=== PATIENT | female | born 1950 | race Caucasian/White ===

== ENCOUNTER → 2016-11-19 | Outpatient (CLI) | payer OTHER ==
--- NOTE | 2016-11-19 16:41 | REP ---
Pelvic ultrasound: History: Pelvic pain. Findings: Transabdominal and transvaginal scanning are performed. Uterine dimensions are normal measured at 4.8 x 1.5 x 3.1 cm. Endometrial echo 0.4 cm thick. Myometrium is somewhat heterogeneous but no identifiable uterine mass is seen. No free fluid is seen. The visualized bladder melvin are smooth. Neither ovary could be identified transabdominally or transvaginal. There is no evidence of free fluid, adnexal cyst or mass. Impression: Normal pelvic sonography. Neither ovary could be directly visualized with either transabdominal or transvaginal technique.
== END ==
LOC: M WHC 12:59
PROVIDERS: ATTEND Nurse Practitioner Family
DX: R10.2 Pelvic and perineal pain (principal)

== ENCOUNTER 2017-01-02 10:10 | Emergency (ER) | payer OTHER ==
[~2017-01-02] VITALS: Ht 144.8 cm; Wt 63.8 kg
[2017-01-02] MEDS ORDERED: METF500T13 PO (10:28)
[2017-01-02] MEDS ORDERED: FLUO20CA19 PO (10:28)
[2017-01-02] MEDS ORDERED: LEVO100T5 PO (10:28)
[2017-01-02] MEDS ORDERED: FARX1TAB3 PO (10:28)
[2017-01-02] MEDS ORDERED: ATOR1TAB21 PO (10:28)
[2017-01-02] MEDS ORDERED: PANT40TA2 PO (10:28)
[2017-01-02] MEDS ORDERED: LISI10TA4 PO (10:28)
[2017-01-02] MEDS ORDERED: NAPR500T3 PO (10:28)
[2017-01-02] MEDS ORDERED: PRED20TA PO (10:28)
[2017-01-02] MEDS ORDERED: VALI5TAB PO (12:08)
[2017-01-02 12:16] VITALS: BP 177/96
[2017-01-03] MEDS ORDERED: PERC5TAB12 PO (04:20)
== END 2017-01-02 12:29 | disposition home or self-care (01) ==
LOC: M ED 12:27
DX: M62.838 Other muscle spasm (principal); E11.9 Type 2 diabetes mellitus without complications; E03.9 Hypothyroidism, unspecified; F41.9 Anxiety disorder, unspecified; F32.9 Major depressive disorder, single episode, unspecified; Z79.84 Long term (current) use of oral hypoglycemic drugs; Z79.899 Other long term (current) drug therapy

== ENCOUNTER 2017-01-03 00:18 | Emergency (ER) | payer OTHER ==
[~2017-01-03] VITALS: Ht 144.8 cm; Wt 68.0 kg
[~2017-01-03 00:18] MED LIST: ATOR1TAB21 PO; FARX1TAB3 PO; FLUO20CA19 PO; LEVO100T5 PO; LISI10TA4 PO; METF500T13 PO; NAPR500T3 PO; PANT40TA2 PO; PRED20TA PO; VALI5TAB PO
[2017-01-03] MEDS ORDERED: PERC5TAB12 PO (04:20)
[2017-01-03] MEDS ORDERED: OXYCODONE/APAP 5MG/325MG(BULK FOR ED) 1 TABLET PO ONE (04:30)
[2017-01-03] MEDS ORDERED: MORPHINE 10 MG/ML 1ML VIAL IM ONE (04:30)
[2017-01-03 04:55] VITALS: BP 167/75
== END 2017-01-03 05:09 | disposition home or self-care (01) ==
LOC: M ED 01:40
DX: M25.562 Pain in left knee (principal); Z79.84 Long term (current) use of oral hypoglycemic drugs; Z79.899 Other long term (current) drug therapy; Z79.52 Long term (current) use of systemic steroids

== ENCOUNTER → 2017-01-07 | Outpatient (RCR) | payer OTHER ==
[~2017-01-07] MED LIST changes: +GABA-283 PO; +NEUR100C PO; +PERC5TAB12 PO
== END | disposition home or self-care (01) ==
LOC: M PT 09:57
PROVIDERS: ATTEND Orthopaedic Surgery
DX: Z51.89 Encounter for other specified aftercare (principal); M25.562 Pain in left knee; M51.37 Other intervertebral disc degeneration, lumbosacral region
CPT/HCPCS: 97162; G8978; G8979

== ENCOUNTER → 2017-01-14 | Outpatient (CLI) | payer OTHER ==
--- NOTE | 2017-01-14 11:05 | REP ---
MRI left knee without contrast: History: Left knee pain. No comparison radiographs. Technique: Sagittal axial and coronal imaging planes were utilized. T1 and T2-weighted scans were obtained in the usual fashion with and without fat saturation. MRI findings: There is a zone of marrow edema extending centrally into the superior pole the patella. Cortical and medullary bone signal intensity are otherwise normal. There is a large area articular cartilage loss in the central portion of the patella superiorly consistent with severe chondromalacia of the patella. This overlies the area of marrow edema. There is also moderate chondromalacia involving the medial femoral condyle. No other articular cartilaginous lesion is seen. There is no visible medial or lateral meniscal tear. There is however some fraying of the inner free margin of the medial meniscus sagittal image. There is no evidence of medial or lateral collateral ligament disruption. The patellar and the quadriceps tendons are intact. Anterior and posterior cruciate ligaments are unremarkable. No significant joint effusion is seen. No Argueta's cyst is seen. Impression: 1. 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 2. Fraying of the inner free margin posterior horn medial meniscus. Signed by Vivek Hassan MD 01/14/2017 11:35 A
--- NOTE | 2017-01-14 13:55 | REP ---
MR LUMBAR SPINE WITHOUT CONTRAST: HISTORY: Back and left leg pain. Decreased signal intensity on T2-weighted images is present in the L2-3 through L5-S1 intervertebral discs. The discs are decreased in height. These findings re consistent with disc degeneration. A small disc protrusion, central and eccentric to the right are present at the T11-12 level. There is minimal effacement of the thecal sac without spinal cord compression. The T11 neural foramina are patent on saggital images. There is no disc bulge or herniation at the L1-2 level. The L1 nerves exit the neural foramina without compression. A diffuse disc bulge is present at the L2-3 level. There is minimal compression of the thecal sac. There is hypertrophy of the posterior articulating facets. The L2 nerves exit the neural foramina without compression. A diffuse disc bulge and mild size left paracentral and intraforaminal disc extrusion are present at the L3-4 level. There is superior migration of disc material. There is minimal compression of the thecal sac. There is compression of the left L3 nerve in the left L3 lateral recess and left L3 neural foramen . The right L3 nerve exits the neural foramen without compression. A diffuse disc bulge is present at the L4-5 level. There is minimal compression of the thecal sac. There is hypertrophy of the posterior articulating facets. There is compression of the right L4 nerve in the neural foramen. The left L4 nerve exits the neural foramen without compression. A diffuse disc bulge is present at the L5-S1 level. There is minimal compression of the thecal sac. There is hypertrophy of the posterior articulating facets. A small right intraforaminal and lateral disc protrusion is present. There is posterolateral displacement of the right L5 nerve in the distal neural foramen. The left L5 nerve exits the neural foramen without compression. The conus medullaris is normal in appearance terminating at the level of the L1-2 intervertebral disc. A hemangioma is present in the L4 vertebral body. Increased signal intensity on T2-weighted images is present in the endplates of the L4 through S1 vertebral bodies. This represents degenerative change. IMPRESSION: 1. Diffuse disc bulge at the L2-3 level with minimal thecal sac compression. 2. Diffuse disc bulge and mild size left paracentral and intraforaminal disc extrusion at the L3-4 level with minimal thecal sac compression. There is compression of the left L3 nerve in the L3 lateral recess and left L3 neural foramen. 3. Diffuse disc bulge at the L4-5 level with minimal thecal sac compression. There is compression of the right L4 nerve in the neural foramen. 4. Diffuse disc bulge at the L5-S1 level with minimal thecal sac compression. A small right intraforaminal and lateral disc protrusion is present. There is posterolateral displacement of the right L5 nerve in the distal neural foramen. Signed by Primo Stoner MD 01/14/2017 01:58 P
== END ==
LOC: M PLARAD 07:41
PROVIDERS: ATTEND Orthopaedic Surgery
DX: M51.26 Other intervertebral disc displacement, lumbar region (principal); M25.562 Pain in left knee; M51.27 Other intervertebral disc displacement, lumbosacral region

== ENCOUNTER 2017-01-16 18:39 | Emergency (ER) | payer OTHER ==
[~2017-01-16] VITALS: Ht 147.3 cm; Wt 63.2 kg
[~2017-01-16 18:39] MED LIST changes: -GABA-283 PO; -NEUR100C PO
[2017-01-16 18:40] VITALS: BP 144/93
[2017-01-16] MEDS ORDERED: PERCOCET 5MG/325MG TAB PO ONE (22:15)
[2017-01-16] MEDS ORDERED: GABAPENTIN 100 MG CAP PO ONE (22:15)
[2017-01-16] MEDS ORDERED: GABA-283 PO (22:18)
[2017-01-16] MEDS ORDERED: NEUR100C PO (22:19)
== END 2017-01-16 22:43 | disposition home or self-care (01) ==
LOC: M ED 18:39
DX: M51.9 Unspecified thoracic, thoracolumbar and lumbosacral intervertebral disc disorder (principal); M25.562 Pain in left knee; K92.9 Disease of digestive system, unspecified; R42 Dizziness and giddiness; E11.9 Type 2 diabetes mellitus without complications; E03.9 Hypothyroidism, unspecified; F41.9 Anxiety disorder, unspecified; F32.9 Major depressive disorder, single episode, unspecified; Z79.84 Long term (current) use of oral hypoglycemic drugs; Z79.899 Other long term (current) drug therapy

== ENCOUNTER → 2017-10-31 | Outpatient (REF) | payer OTHER | LOC: M LAB REF 11:38 | DX: R19.7 Diarrhea, unspecified (principal) | CPT/HCPCS: 87507 ==

== ENCOUNTER → 2018-03-30 | Outpatient (REF) | payer OTHER ==
[2018-04-06 14:17] LABS: HPV HYBRID CAPTURE II Positive (Negative)
== END ==
LOC: M SFHCWAGY 14:04
DX: Z01.411 Encounter for gynecological examination (general) (routine) with abnormal findings (principal); Z12.4 Encounter for screening for malignant neoplasm of cervix (principal); R87.610 Atypical squamous cells of undetermined significance on cytologic smear of cervix (ASC-US); Z12.12 Encounter for screening for malignant neoplasm of rectum; N95.2 Postmenopausal atrophic vaginitis
CPT/HCPCS: G0123

== ENCOUNTER → 2018-04-17 | Outpatient (REF) | payer OTHER | LOC: M SFHCWAGY 13:29 | DX: R87.810 Cervical high risk human papillomavirus (HPV) DNA test positive (principal); R85.610 Atypical squamous cells of undetermined significance on cytologic smear of anus (ASC-US) | CPT/HCPCS: 88304 ==

== ENCOUNTER → 2018-04-20 | Outpatient (REF) | payer OTHER ==
[2018-04-21 12:03] LABS: HEPATITIS C VIRUS ABY INDEX < 0.0 INDEX (<0.8)
== END ==
LOC: M LAB REF 17:36
DX: Z11.59 Encounter for screening for other viral diseases (principal)
CPT/HCPCS: 86803

== ENCOUNTER → 2018-05-05 | Outpatient (CLI) | payer OTHER | LOC: M WHC 12:56 | DX: Z12.31 Encounter for screening mammogram for malignant neoplasm of breast (principal); Z78.0 Asymptomatic menopausal state; Z79.890 Hormone replacement therapy | CPT/HCPCS: 77067 ==

== ENCOUNTER → 2020-01-14 | Outpatient (REF) | payer MEDICARE ==
[~2020-01-14] MED LIST changes: -FLUO20CA19 PO; +FLUO20CA22 PO; +GABA-845 PO; +NAPR-885 PO; -NAPR500T3 PO; +NEUR100C PO; -PANT40TA2 PO; +PANT40TA3 PO
== END ==
LOC: M SFHCWAGY 17:03
PROVIDERS: ATTEND Nurse Practitioner Family
DX: Z12.4 Encounter for screening for malignant neoplasm of cervix (principal); N95.2 Postmenopausal atrophic vaginitis
CPT/HCPCS: 87624; G0123

== ENCOUNTER → 2021-02-26 | Outpatient (REF) | payer MEDICARE ==
[~2021-02-26] MED LIST changes: +GABA-283 PO; -GABA-845 PO; +LISI10TA22 PO; -LISI10TA4 PO; +PANT40TA29 PO; -PANT40TA3 PO
== END ==
LOC: M LAB REF 16:33
PROVIDERS: ATTEND Internal Medicine
DX: K22.70 Barrett's esophagus without dysplasia (principal); K21.9 Gastro-esophageal reflux disease without esophagitis; Z86.010 Personal history of colon polyps

== ENCOUNTER → 2021-04-17 | Outpatient (CLI) | payer MEDICARE ==
--- NOTE | 2021-04-17 13:32 | REPMRS ---
Patient History The patient states she has not had a clinical breast exam in over a year. Patient is postmenopausal. No known family history of cancer. Taking estrogen for 3 years. No breast complaints today Patient signed the MRS sheet 1st covid vaccine 09/30/20-right arm-Moderna 2nd covid vaccine 10/28/20-right arm Priors on PACS Patient Identification Verified Digital Woman Screen Mammo: April 17, 2021 - Exam #: [id number] Bilateral CC and MLO view(s) were taken. Technologist: Aneta Baca, Technologist Prior study comparison: April 25, 2020, bilateral digital woman screen mammo performed at [facility]. April 11, 2019, bilateral digital mammo screening bilat, performed at [facility]. May 05, 2018, bilateral digital woman screen mammo performed at [facility]. FINDINGS: The breast tissue is almost entirely fat. The Volpara volumetric breast density category is: A. There has been no change in the appearance of the mammogram from the prior studies. There is no interval development of dominant mass, architectural distortion, or grouped microcalcification typical of malignancy. 3-D tomosynthesis shows no additional findings. Assessment: BI-RADS/ACR category 1 mammogram. Negative Mammogram. Recommendation Routine screening mammogram of both breasts in 1 year (for women over age 40). This patient's [facility] [address] Lifetime Breast Cancer RIsk is estimated at 3.9 %. This mammogram was interpreted with the aid of an FDA-approved computer-aided dectection system. Electronically Signed By: Daquan Hassan MD 04/17/21 [id number]
== END ==
LOC: M WHC 11:47
PROVIDERS: ATTEND Internal Medicine
DX: Z12.31 Encounter for screening mammogram for malignant neoplasm of breast (principal)

== ENCOUNTER → 2022-01-15 | Outpatient (CLI) | payer MEDICARE | LOC: M EKG 11:40 | PROVIDERS: ATTEND Nurse Practitioner Adult Health | DX: R00.2 Palpitations (principal) ==

== ENCOUNTER → 2022-03-18 | Outpatient (REF) | payer MEDICARE | LOC: M LAB REF 12:12 | PROVIDERS: ATTEND Nurse Practitioner Adult Health | DX: K22.70 Barrett's esophagus without dysplasia (principal); R19.7 Diarrhea, unspecified; Z86.010 Personal history of colon polyps ==

== ENCOUNTER → 2022-03-22 | Outpatient (REF) | payer MEDICARE | LOC: M LAB REF 11:37 | PROVIDERS: ATTEND Internal Medicine Gastroenterology | DX: K22.70 Barrett's esophagus without dysplasia (principal) ==

== ENCOUNTER → 2022-04-19 | Outpatient (CLI) | payer MEDICARE | LOC: M WHC 09:12 | PROVIDERS: ATTEND Nurse Practitioner Adult Health | DX: Z12.31 Encounter for screening mammogram for malignant neoplasm of breast (principal); Z13.820 Encounter for screening for osteoporosis; M85.851 Other specified disorders of bone density and structure, right thigh; M85.852 Other specified disorders of bone density and structure, left thigh ==

== ENCOUNTER 2022-12-28 14:45 | Emergency (ER) | payer MEDICARE ==
[~2022-12-28] VITALS: Ht 144.8 cm; Wt 55.2 kg
[2022-12-28 17:20] LABS: BASO # 0.1 10^3/uL (0.0-0.2); BASO % 0.7 % (0.0-1.0); EOS # 0.1 10^3/uL (0.0-0.5); EOS % 1.2 % (0.0-3.0); HEMATOCRIT 43.2 % (36.0-47.0); LYMPH # 4.1 10^3/uL (1.5-5.0); LYMPH % 44.9 % (24.0-44.0); MEAN CORPUSCULAR HEMOGLOBIN 28.2 pg (27.0-33.0); MEAN CORPUSCULAR HGB CONC 32.4 g/dl (32.0-36.5); MEAN CORPUSCULAR VOLUME 87.1 fl (80.0-96.0); MONO # 0.7 10^3/uL (0.0-0.8); MONO % 7.7 % (2.0-8.0); NEUTROPHILS # 4.1 10^3/uL (1.5-8.5); NEUTROPHILS % 45.2 % (36.0-66.0); PLATELET COUNT, AUTOMATED 403 10^3/uL (150-450); RED BLOOD COUNT 4.96 10^6/uL (4.00-5.40); WHITE BLOOD COUNT 9.1 10^3/uL (4.0-10.0)
[2022-12-28 17:38] VITALS: TEMP 97.2
[2022-12-28 17:47] LABS: LIPASE 80 U/L (12-53)
[2022-12-28 17:49] LABS: ALBUMIN 3.7 G/DL (3.2-5.2); ALKALINE PHOSPHATASE 88 U/L (46-116); ALT/SGPT 29 U/L (7.0-40); AST/SGOT 50 U/L (<34); BILIRUBIN,DIRECT 0.1 MG/DL (<0.4); BILIRUBIN,TOTAL 0.7 MG/DL (0.3-1.2); BLOOD UREA NITROGEN 32 MG/DL (9-23); CALCIUM LEVEL 9.9 MG/DL (8.3-10.6); CARBON DIOXIDE LEVEL 20 MMOL/L (20-31); CHLORIDE LEVEL 101 MMOL/L (98-107); CK-MB VALUE MASS 5.9 NG/ML (<3.6); CREATININE FOR GFR 0.81 MG/DL (0.55-1.30); GLOMERULAR FILTRATION RATE > 60.0 (>39); GLUCOSE, FASTING 154 MG/DL (74-106); SODIUM LEVEL 133 MMOL/L (136-145); TOTAL PROTEIN 7.5 G/DL (5.7-8.2)
[2022-12-28 17:51] LABS: CPK CREATINE PHOSPHOKINASE 131 U/L (34-145)
[2022-12-28] MEDS ORDERED: ASPIRIN 81MG CHEW TABLET PO ONE (18:20)
[2022-12-28] MEDS ORDERED: ISOVUE-370 76% 100ML VIAL As Ordered ONE (18:28)
[2022-12-28 18:51] LABS: CK-MB VALUE MASS 5.7 NG/ML (<3.6)
[2022-12-28 18:53] LABS: INR 0.94; MB/CK RELATIVE INDEX 4.83 (< OR =4); PROTHROMBIN TIME 12.8 SECONDS (12.5-14.5)
[2022-12-28 18:54] LABS: PARTIAL THROMBOPLASTIN TIME 28.1 SECONDS (24.8-34.2)
[2022-12-28 19:13] LABS: RSV AMPLIFICATION NEGATIVE (NEGATIVE)
[2022-12-28 19:43] LABS: THYROID STIMULATING HORMONE 2.413 uIU/ML (0.55-4.78)
[2022-12-28] MEDS ORDERED: HEPARIN SOD (PORCINE) 5000UNITS/ML 1ML VIAL/SYRINGE IV ONE (20:45)
[2022-12-28] MEDS ORDERED: HEPARIN DRIP 25,000 UNITS in IV 1 EA IV SCH (20:45)
[2022-12-28 21:46] VITALS: BP 116/61; O2SAT 100
== END 2022-12-28 22:02 | disposition short-term general hospital (02) ==
LOC: M ED 14:45
DX: I21.4 Non-ST elevation (NSTEMI) myocardial infarction (principal); E11.9 Type 2 diabetes mellitus without complications; I10 Essential (primary) hypertension; E78.5 Hyperlipidemia, unspecified; K44.9 Diaphragmatic hernia without obstruction or gangrene; Z79.02 Long term (current) use of antithrombotics/antiplatelets; Z79.891 Long term (current) use of opiate analgesic; Z79.4 Long term (current) use of insulin; Z79.899 Other long term (current) drug therapy
CPT/HCPCS: 71045; 71275; 80048; 80076; 82550; 82553; 83690; 83880; 84443; 84484; 85025; 85610; 85730; 87631; 93005; 93041; 94760; 96374; 96375; 99285; Q9967

== ENCOUNTER 2023-02-14 15:38 | Emergency (ER) | payer MEDICARE ==
[~2023-02-14] VITALS: Ht 144.8 cm; Wt 54.6 kg
[~2023-02-14 15:38] MED LIST changes: -GABA-283 PO; +GABA-284 PO
[2023-02-14 16:37] LABS: HEMATOCRIT 39.1 % (36.0-47.0); HEMOGLOBIN 12.4 g/dl (12.0-15.5); MEAN CORPUSCULAR HEMOGLOBIN 28.3 pg (27.0-33.0); MEAN CORPUSCULAR HGB CONC 31.7 g/dl (32.0-36.5); MEAN CORPUSCULAR VOLUME 89.3 fl (80.0-96.0); PLATELET COUNT, AUTOMATED 349 10^3/uL (150-450); RED BLOOD COUNT 4.38 10^6/uL (4.00-5.40); WHITE BLOOD COUNT 8.4 10^3/uL (4.0-10.0)
[2023-02-14 16:59] LABS: BLOOD UREA NITROGEN 18 MG/DL (9-23); CALCIUM LEVEL 9.5 MG/DL (8.3-10.6); CARBON DIOXIDE LEVEL 21 MMOL/L (20-31); CHLORIDE LEVEL 104 MMOL/L (98-107); CPK CREATINE PHOSPHOKINASE 31 U/L (34-145); CREATININE FOR GFR 0.73 MG/DL (0.55-1.30); GLOMERULAR FILTRATION RATE > 60.0 (>39); GLUCOSE, FASTING 98 MG/DL (74-106); MB/CK RELATIVE INDEX 3.22 (< OR =4); POTASSIUM SERUM 4.2 MMOL/L (3.5-5.1); SODIUM LEVEL 139 MMOL/L (136-145)
[2023-02-14 19:27] LABS: CK-MB VALUE MASS 1.3 NG/ML (<3.6)
[2023-02-14 19:29] LABS: MB/CK RELATIVE INDEX 4.19 (< OR =4)
[2023-02-14] MEDS ORDERED: ISOVUE-370 76% 100ML VIAL As Ordered ONE (19:49)
[2023-02-14 22:06] LABS: CK-MB VALUE MASS < 1.0 NG/ML (<3.6)
[2023-02-14 22:12] LABS: CPK CREATINE PHOSPHOKINASE 31 U/L (34-145); MB/CK RELATIVE INDEX 3.22 (< OR =4)
[2023-02-14] MEDS ORDERED: ALBU8.5H INH (22:21)
[2023-02-14 22:23] VITALS: BP 141/65; TEMP 98; O2SAT 99
== END 2023-02-14 22:33 | disposition home or self-care (01) ==
LOC: M ED 15:38
DX: R07.9 Chest pain, unspecified (principal); E11.9 Type 2 diabetes mellitus without complications; E78.5 Hyperlipidemia, unspecified; K21.9 Gastro-esophageal reflux disease without esophagitis; H81.4 Vertigo of central origin; Z79.52 Long term (current) use of systemic steroids; Z79.811 Long term (current) use of aromatase inhibitors; Z79.4 Long term (current) use of insulin; Z79.899 Other long term (current) drug therapy
CPT/HCPCS: 36415; 71275; 80048; 82550; 82553; 84484; 85027; 93005; 99284; Q9967

== ENCOUNTER → 2023-04-20 | Outpatient (CLI) | payer MEDICARE ==
[~2023-04-20] MED LIST changes: +ALBU8.5H INH
== END ==
LOC: M WHC 08:10
PROVIDERS: ATTEND Nurse Practitioner Adult Health
DX: Z12.31 Encounter for screening mammogram for malignant neoplasm of breast (principal)

== ENCOUNTER → 2023-12-01 | Outpatient (REF) | payer MEDICARE | LOC: M LAB REF 18:00 | PROVIDERS: ATTEND Nurse Practitioner Family | DX: R30.0 Dysuria (principal) ==

== ENCOUNTER → 2023-12-12 | Outpatient (REF) | payer MEDICARE ==
[~2023-12-12] MED LIST changes: +FLUO-365 PO; -FLUO20CA22 PO
== END ==
LOC: M LAB REF 16:21
PROVIDERS: ATTEND Student in an Organized Health Care Education/Training Program
DX: R30.0 Dysuria (principal)

== ENCOUNTER → 2024-03-08 | Outpatient (REF) | payer MEDICARE ==
[2024-03-08 17:03] LABS: RSV AMPLIFICATION NEGATIVE (NEGATIVE)
== END ==
LOC: M LAB REF 16:05
PROVIDERS: ATTEND Nurse Practitioner Adult Health
DX: R05.9 Cough, unspecified (principal)

== ENCOUNTER → 2024-03-14 | Outpatient (REF) | payer MEDICARE ==
[2024-03-14 19:12] LABS: HEMATOCRIT 36.4 % (36.0-47.0)
[2024-03-14 19:43] LABS: PERCENT SATURATION 13.3 % (13.2-45.0)
[2024-03-14 19:44] LABS: FERRITIN 14.6 NG/ML (7.3-270.7)
== END ==
LOC: M LAB REF 16:47
PROVIDERS: ATTEND Nurse Practitioner Adult Health
DX: D50.9 Iron deficiency anemia, unspecified (principal)

== ENCOUNTER → 2024-04-23 | Outpatient (CLI) | payer MEDICARE | LOC: M WHC 09:14 | PROVIDERS: ATTEND Nurse Practitioner Adult Health | DX: Z12.31 Encounter for screening mammogram for malignant neoplasm of breast (principal); R92.313 Mammographic fatty tissue density, bilateral breasts ==

== ENCOUNTER → 2025-04-11 | Outpatient (REF) | payer MEDICARE | LOC: M LAB REF 14:59 | PROVIDERS: ATTEND Nurse Practitioner Adult Health | DX: N39.0 Urinary tract infection, site not specified (principal) ==

== ENCOUNTER → 2025-04-24 | Outpatient (CLI) | payer MEDICARE | LOC: M WHC 08:44 | PROVIDERS: ATTEND Nurse Practitioner Adult Health | DX: Z12.31 Encounter for screening mammogram for malignant neoplasm of breast (principal); R92.313 Mammographic fatty tissue density, bilateral breasts; M85.88 Other specified disorders of bone density and structure, other site ==